=== PATIENT | female | born 1980 | race Caucasian/White ===

== ENCOUNTER 2017-08-23 12:20 | Emergency (ER) | payer SELFPAY | END 2017-08-23 13:30 | disposition home or self-care (01) | LOC: D.ER 12:20 | DX: H57.12 Ocular pain, left eye (principal) ==

== ENCOUNTER 2018-08-12 08:48 | Emergency (ER) | payer OTHER ==
[~2018-08-12] VITALS: Ht 165.1 cm; Wt 79.5 kg
[2018-08-12 08:51] VITALS: BP 139/84; Ht 165.1 cm; Wt 79.5 kg
[2018-08-12] MEDS ORDERED: BUPRENORPHIN-N1 EACH SL ×2 (08:53)
[2018-08-12] MEDS ORDERED: ERYTHROMYCIN OPT1 GM EACH EYE (09:11)
== END 2018-08-12 09:20 | disposition home or self-care (01) ==
LOC: D.ER 08:48
DX: S05.01XA Injury of conjunctiva and corneal abrasion without foreign body, right eye, initial encounter (principal); X58.XXXA Exposure to other specified factors, initial encounter; Y93.9 Activity, unspecified

== ENCOUNTER 2018-12-30 09:00 | Outpatient (CLI) | payer OTHER ==
[2018-08-12 08:51] VITALS: BMI 29.1
[~2018-12-30 09:00] MED LIST: BUPRENORPHIN-N1 EACH SL; ERYTHROMYCIN OPT1 GM EACH EYE
== END 2018-12-30 10:00 | disposition home or self-care (01) ==
LOC: D.MAMMO 09:00
PROVIDERS: ATTEND Family Medicine
DX: N63.0 Unspecified lump in unspecified breast (principal)